=== PATIENT | male | born 1960 | race Caucasian/White ===

== ENCOUNTER → 2016-08-28 | Outpatient (CLI) | payer OTHER ==
[~2016-08-28] MED LIST: ADULT LOW DOSE81 MG PO; ADVAIR 100-501 EACH INH; ADVAIR HFA115 MCG/21 INH; ALBUTEROL2.5 MG/31 INH; ALLOPURINOL 30300 M1 PO; AMITIZA 24 MCG24 MC1 PO; AMOXICILLIN 50500 M1 PO; ASPIRIN EC325 M1 PO; AUGMENTIN 875875 M1 PO; BUMETANIDE 1 MG1 M1 PO; CELEBREX 200 M200 MG PO; CLOTRIMAZOLE-BE15 GM TP; COLACE 100 MG100 MG; COLACE 100 MG100 MG PO; COREG6.25 MG PO; COZAAR100 MG PO; CRESTOR10 MG PO; CRESTOR20 MG PO; DESYREL50 MG PO; DOXYCYCLINE 10100 MG PO; DUONEB 2.5-0.5 M3 ML INH; ESTER-C 1,0001 EACH PO; FISH OIL SOFTG1 EACH PO; FLOVENT DISKU100 MCG; FUROSEMIDE 20 M20 M1 PO; GLIPIZIDE XL5 MG PO; GLUCOPHAGE1000 MG PO; GLUCOTROL5 MG PO; HEPARIN SO5000 UNIT2 IJ; HYDROCODON-ACE1 EAC8 PO; INVANZ 1GM/NS 101 GM IV; INVANZ1 G1 IV; IRON325 PO; JANUVIA100 MG PO; K-DUR 20 MEQ T20 MEQ PO; KETOCONAZOLE60 GM; LASIX 40 MG TAB40 M1 PO; LISINOPRIL2.5 MG PO; LISINOPRIL40 MG PO; LOPRESSOR 50 MG50 M1 PO; LOPRESSOR100 MG PO; LOPRESSOR50 PO; METFORMIN HCL500 MG PO; METHADONE HCL 110 M1 PO; MOBIC15 MG PO; MOBIC7.5 MG; MORPHINE S10 MG/1 M1 IJ; MOVANTIK12.5 MG PO; MUCINEX TA600 MG/TA1 PO; MULTIVITAMINS PO; NEURONTIN 300300 M1 PO; NORCO 10-325 T1 EACH PO; OMEGA-31000 M1 PO; OXYCONTIN20 M1; PERCOCET 5-3251 EACH PO; PLAVIX 75 MG TA75 MG PO; POTASSIUM CHLO20 ME2 PO; PRINIVIL20 MG PO; SENNA PO; SPIRIVA18 MCG INH; SYMBICORT160 MCG/4. INH; TRILEPTAL150 MG PO; TYLENOL325 MG PO; VENTOLIN HFA 1818 GM INH; VICODIN 5-5001 EACH PO; VITAMIN C1000 MG PO; VITAMIN D1000 UNI1 PO; XANAX 0.25 MG0.25 MG PO; ZOCOR 10 MG TAB10 MG PO; [UNRECOGNIZED DRUG - OTHER] PO
== END ==
LOC: HYPER 04-09 06:55
DX: I87.2 Venous insufficiency (chronic) (peripheral) (principal); L97.821 Non-pressure chronic ulcer of other part of left lower leg limited to breakdown of skin; E11.622 Type 2 diabetes mellitus with other skin ulcer; R60.9 Edema, unspecified; E11.51 Type 2 diabetes mellitus with diabetic peripheral angiopathy without gangrene; E78.00 Pure hypercholesterolemia, unspecified; J44.9 Chronic obstructive pulmonary disease, unspecified; I25.10 Atherosclerotic heart disease of native coronary artery without angina pectoris; I10 Essential (primary) hypertension; I25.2 Old myocardial infarction; E66.9 Obesity, unspecified; Z79.84 Long term (current) use of oral hypoglycemic drugs; Z89.519 Acquired absence of unspecified leg below knee; Z95.1 Presence of aortocoronary bypass graft; Z87.891 Personal history of nicotine dependence; Z72.89 Other problems related to lifestyle

== ENCOUNTER → 2016-09-11 | Outpatient (CLI) | payer OTHER | LOC: HYPER 07:05 | DX: I87.2 Venous insufficiency (chronic) (peripheral) (principal); E11.622 Type 2 diabetes mellitus with other skin ulcer; L97.821 Non-pressure chronic ulcer of other part of left lower leg limited to breakdown of skin; R60.9 Edema, unspecified; E11.51 Type 2 diabetes mellitus with diabetic peripheral angiopathy without gangrene; E78.00 Pure hypercholesterolemia, unspecified; L03.116 Cellulitis of left lower limb; J44.9 Chronic obstructive pulmonary disease, unspecified; I25.10 Atherosclerotic heart disease of native coronary artery without angina pectoris; I10 Essential (primary) hypertension; I25.2 Old myocardial infarction; E66.9 Obesity, unspecified; Z79.84 Long term (current) use of oral hypoglycemic drugs; Z87.891 Personal history of nicotine dependence; Z72.89 Other problems related to lifestyle; Z72.0 Tobacco use; Z95.1 Presence of aortocoronary bypass graft; Z89.519 Acquired absence of unspecified leg below knee ==

== ENCOUNTER → 2016-10-07 | Outpatient (CLI) | payer OTHER | LOC: HYPER 07:03 | DX: E11.622 Type 2 diabetes mellitus with other skin ulcer (principal); L97.821 Non-pressure chronic ulcer of other part of left lower leg limited to breakdown of skin; E11.51 Type 2 diabetes mellitus with diabetic peripheral angiopathy without gangrene; E78.00 Pure hypercholesterolemia, unspecified; J44.9 Chronic obstructive pulmonary disease, unspecified; I25.10 Atherosclerotic heart disease of native coronary artery without angina pectoris; I25.2 Old myocardial infarction; Z89.519 Acquired absence of unspecified leg below knee; Z79.84 Long term (current) use of oral hypoglycemic drugs; Z95.1 Presence of aortocoronary bypass graft; Z87.891 Personal history of nicotine dependence; Z72.89 Other problems related to lifestyle ==

== ENCOUNTER → 2016-10-28 | Outpatient (CLI) | payer OTHER | LOC: HYPER 07:02 | DX: I87.2 Venous insufficiency (chronic) (peripheral) (principal); E11.622 Type 2 diabetes mellitus with other skin ulcer; L97.821 Non-pressure chronic ulcer of other part of left lower leg limited to breakdown of skin; L97.321 Non-pressure chronic ulcer of left ankle limited to breakdown of skin; E11.69 Type 2 diabetes mellitus with other specified complication; R60.9 Edema, unspecified; E11.51 Type 2 diabetes mellitus with diabetic peripheral angiopathy without gangrene; E78.00 Pure hypercholesterolemia, unspecified; J44.9 Chronic obstructive pulmonary disease, unspecified; I25.10 Atherosclerotic heart disease of native coronary artery without angina pectoris; I10 Essential (primary) hypertension; I25.2 Old myocardial infarction; E66.9 Obesity, unspecified; Z79.84 Long term (current) use of oral hypoglycemic drugs; Z87.891 Personal history of nicotine dependence; Z72.89 Other problems related to lifestyle; Z89.519 Acquired absence of unspecified leg below knee; Z95.1 Presence of aortocoronary bypass graft ==

== ENCOUNTER → 2016-11-18 | Outpatient (CLI) | payer OTHER | LOC: HYPER 06:54 | DX: I87.2 Venous insufficiency (chronic) (peripheral) (principal); E11.622 Type 2 diabetes mellitus with other skin ulcer; L97.521 Non-pressure chronic ulcer of other part of left foot limited to breakdown of skin; E11.51 Type 2 diabetes mellitus with diabetic peripheral angiopathy without gangrene; E78.00 Pure hypercholesterolemia, unspecified; J44.9 Chronic obstructive pulmonary disease, unspecified; I25.10 Atherosclerotic heart disease of native coronary artery without angina pectoris; I10 Essential (primary) hypertension; I25.2 Old myocardial infarction; Z95.1 Presence of aortocoronary bypass graft; Z89.519 Acquired absence of unspecified leg below knee; Z87.891 Personal history of nicotine dependence; Z79.84 Long term (current) use of oral hypoglycemic drugs; Z72.89 Other problems related to lifestyle ==

== ENCOUNTER → 2016-12-09 | Outpatient (CLI) | payer OTHER | LOC: HYPER 06:56 | DX: I87.2 Venous insufficiency (chronic) (peripheral) (principal); E11.622 Type 2 diabetes mellitus with other skin ulcer; L97.821 Non-pressure chronic ulcer of other part of left lower leg limited to breakdown of skin; R60.9 Edema, unspecified; E11.51 Type 2 diabetes mellitus with diabetic peripheral angiopathy without gangrene; E78.00 Pure hypercholesterolemia, unspecified; J44.9 Chronic obstructive pulmonary disease, unspecified; I25.10 Atherosclerotic heart disease of native coronary artery without angina pectoris; I25.2 Old myocardial infarction; E66.9 Obesity, unspecified; Z79.84 Long term (current) use of oral hypoglycemic drugs; Z87.891 Personal history of nicotine dependence; Z72.89 Other problems related to lifestyle; Z95.1 Presence of aortocoronary bypass graft; Z89.519 Acquired absence of unspecified leg below knee ==

== ENCOUNTER → 2016-12-30 | Outpatient (CLI) | payer OTHER | LOC: HYPER 09:34 | DX: E11.622 Type 2 diabetes mellitus with other skin ulcer (principal); L97.821 Non-pressure chronic ulcer of other part of left lower leg limited to breakdown of skin; I87.2 Venous insufficiency (chronic) (peripheral); E11.51 Type 2 diabetes mellitus with diabetic peripheral angiopathy without gangrene; E78.00 Pure hypercholesterolemia, unspecified; Z79.84 Long term (current) use of oral hypoglycemic drugs; J44.9 Chronic obstructive pulmonary disease, unspecified; I25.10 Atherosclerotic heart disease of native coronary artery without angina pectoris; I25.2 Old myocardial infarction; E66.9 Obesity, unspecified; Z68.37 Body mass index [BMI] 37.0-37.9, adult; Z87.891 Personal history of nicotine dependence; Z95.1 Presence of aortocoronary bypass graft; Z89.519 Acquired absence of unspecified leg below knee ==

== ENCOUNTER → 2017-01-20 | Outpatient (CLI) | payer OTHER | LOC: HYPER 06:41 | DX: E11.622 Type 2 diabetes mellitus with other skin ulcer (principal); L97.821 Non-pressure chronic ulcer of other part of left lower leg limited to breakdown of skin; I87.2 Venous insufficiency (chronic) (peripheral); E11.51 Type 2 diabetes mellitus with diabetic peripheral angiopathy without gangrene; E78.00 Pure hypercholesterolemia, unspecified; Z79.84 Long term (current) use of oral hypoglycemic drugs; J44.9 Chronic obstructive pulmonary disease, unspecified; I25.10 Atherosclerotic heart disease of native coronary artery without angina pectoris; I25.2 Old myocardial infarction; E66.9 Obesity, unspecified; Z68.37 Body mass index [BMI] 37.0-37.9, adult; Z87.891 Personal history of nicotine dependence; Z95.1 Presence of aortocoronary bypass graft ==

== ENCOUNTER → 2017-02-10 | Outpatient (CLI) | payer OTHER | LOC: HYPER 06:59 | DX: E11.622 Type 2 diabetes mellitus with other skin ulcer (principal); L97.821 Non-pressure chronic ulcer of other part of left lower leg limited to breakdown of skin; I87.2 Venous insufficiency (chronic) (peripheral); E11.51 Type 2 diabetes mellitus with diabetic peripheral angiopathy without gangrene; Z79.84 Long term (current) use of oral hypoglycemic drugs; J44.9 Chronic obstructive pulmonary disease, unspecified; I25.10 Atherosclerotic heart disease of native coronary artery without angina pectoris; E78.00 Pure hypercholesterolemia, unspecified; I10 Essential (primary) hypertension; I25.2 Old myocardial infarction; E66.9 Obesity, unspecified; Z68.37 Body mass index [BMI] 37.0-37.9, adult; Z87.891 Personal history of nicotine dependence ==

== ENCOUNTER 2017-04-14 15:45 | Inpatient (IN) | payer OTHER ==
[~2017-04-14] VITALS: Ht 195.6 cm; Wt 150.3 kg
--- NOTE | ~2017-04-14 | HC ---
[facility] [place] [address] CONSULTATION Name: NEFTALI KRAMER Kellee Room #: 243-P [facility] IN M.R.#: [id number] Admission: 04/14/17 Attend Phys: Jenn Frausto Discharge: Date of : 58 Report #: [id number] THIS REPORT FOR: //name// CC: June Frausto DATE OF SERVICE: 04/15/2017 REASON FOR WOUND CARE CONSULTATION: Cellulitis with open wounds of left lower leg, pressure wounds of right below-knee amputation stump. HISTORY OF PRESENT ILLNESS: The patient is a 56-year-old gentleman very well known to the wound care center at [facility] and Dr. Cedric Sidhu for multiple visits over several years for peripheral vascular disease of the lower extremities and chronic venous stasis with ulceration. Asymmetry with compression wraps and compression pumps for edema of his legs and leg wounds. The patient was seen in the Wound Care Center on 04/14, was noted to have considerable drainage from the wounds and cellulitis of the left leg, some foul smelling drainage from the leg and some altered mental status. The patient has been admitted to the hospital and placed on intravenous antibiotics. He has been noted to have altered mental status with hypercapnia and a cough with abnormal x-ray with pneumonia. He is currently on vancomycin and Zosyn. The patient has had some altered mental status with drowsiness, somnolence and some bizarre behavior. Wound care is consulted for wounds of his legs. ALLERGIES: None. OUTPATIENT MEDICATIONS: Include omega 3, fish oil, vitamin D, multiple vitamins, gabapentin, allopurinol, Spiriva, Symbicort, Xanax, aspirin, carvedilol, Bumex, vitamin C, metformin, Crestor and lisinopril. PAST MEDICAL HISTORY: Peripheral vascular disease with right below-knee amputation, history of chronic venous stasis with ulceration and inflammation of the lower legs, left lower extremity cellulitis, history of chronic obstructive pulmonary disease, diabetes mellitus type 2 and coronary artery disease with coronary artery bypass grafting. PAST SURGICAL HISTORY: Coronary artery bypass graft in 2005 and right below-knee amputation. SOCIAL HISTORY: Unobtainable. FAMILY HISTORY: Unobtainable. PHYSICAL EXAMINATION: GENERAL: Shows an obese, middle-aged male with some altered mental [address] [address] CONSULTATION Name: NEFTALI KRAMER Kellee Room #: 243-P [facility] IN .R.#: [id number] Admission: 04/14/17 Attend Phys: Jenn Frausto Discharge: Date of : 58 Report #: [id number] status and somnolence. HEENT: Mucous membranes are moist. LUNGS: Respirations are slightly labored. ABDOMEN: Obese. EXTREMITIES: Examination of the lower extremities shows the right below-knee amputation stump with healed incision line. There are four linear pressure sores associated with the stump on the distal stump and dorsal surface, the largest measuring 2 x 1 cm, which are superficial. These appear to be from the prosthesis. Examination of the left lower extremity shows evidence of chronic venous stasis with pigmentation changes. There are superficial ulcerations of the skin and some weeping drainage. Cultures are taken. They are standard open areas. Dorsalis pedis pulse in the left foot is not palpable. IMPRESSION: 1. Obesity. 2. COPD. 3. Altered mental status with pneumonia. 4. History of coronary artery disease. 5. History of peripheral vascular disease, status post right bony amputation. 6. Complications of right below-knee amputation stump with pressure ulcer from prosthesis. 7. Chronic venous stasis with ulcer and inflammation of the left lower leg with cellulitis. PLAN: Keep the patient's prosthesis off. Wound cultures to be taken of the left leg. Silvadene and Xeroform dressing to the open wounds with Kerlix and Ronald wrap to the left leg. Agree with vancomycin and Zosyn. We will order ultrasound arterial and venous of the left lower extremity to assess for arterial sufficiency and to rule out deep vein thrombosis. We will monitor the cellulitis of his left leg and wound healing. If arterial supply is good to the left leg and his cellulitis resolves, we may be able to increase compression to the leg to stimulate healing of the open wound. Wound care team will follow. By: [id number] [id number] Cameron Jones MD /nt
--- NOTE | ~2017-04-14 | P ---
[facility] [place] [address] PROCEDURE REPORT Name: NIANEFTALI Kellee Room #: 243-P [facility] IN M.R.#: [id number] Admission: 04/14/17 Attend Phys: Jenn Frausto Discharge: Date of : 58 Report #: [id number] THIS REPORT FOR: //name// CC: June Frausto DATE OF SERVICE: 04/15/2017 PROCEDURE: Endotracheal intubation. INDICATION: Worsening respiratory failure. The patient is critically ill. PROCEDURE NOTATION: The patient continued to deteriorate throughout the day from a ventilatory standpoint with worsening acidosis with severe respiratory acidosis decompensating despite noninvasive positive pressure ventilation. The patient was given 20 mg of etomidate. Grade 1 view of the vocal cords were obtained with a Jarred 4 blade under direct laryngoscopy. Some yellow secretions were noted in the vocal cords. Prior to intubation 8.0 tube was then advanced easily to 22 cm at the teeth. Positive Easy Cap color change and bilateral breath sounds were noted post-intubation. This was secured in place. Chest x-ray pending at the time of this dictation, placed on mechanical ventilatory support, initially at tidal volume 500, respiratory rate of 18, PEEP of 5, FiO2 100% with arterial blood gas pending. By: [id number] Johnnie Acharya MD /nt
--- NOTE | ~2017-04-14 | HC ---
[facility] [place] [address] CONSULTATION Name: NIANEFTALI Kellee Room #: 243-P [facility] IN M.R.#: [id number] Admission: 04/14/17 Attend Phys: Jenn Frausto Discharge: Date of : 58 Report #: [id number] THIS REPORT FOR: //name// CC: June Frausto DATE OF SERVICE: 04/15/2017 HISTORY OF PRESENT ILLNESS: This is a 56-year-old male patient who was unable to provide any history. I talked to the nurses looking after this patient. I reviewed the patient's record. No family member is reachable at the moment. Apparently, he had some friends, but they are not reachable at the moment. He was admitted with altered mental status. It is not clear how long it is going on, but he has pretty profound altered mental status. He went to his non destructive testing specialist and they admitted him with what looks like cellulitis, but on workup, it was found that his pCO2 is markedly elevated. At one time, his pCO2 was 72.5 and he was transferred to ICU. Nurses tell me that he can follow simple commands sometime and let them know that he does not like the BiPAP he is on. REVIEW OF SYSTEM: Is available only from the record in this patient. I reviewed the records and it would appear that this patient was falling off to sleep very easily. He had what appeared to be cellulitis. He has a history of peripheral vascular disease and poorly managed diabetes. He does have a significant respiratory problem even in the baseline. I tried to get 14-point review of system and that is all I can get on him and it is mostly from the record. He had a wound with amputation and they suspect that he may be having cellulitis. He is already being followed by multiple physicians including ID, Pulmonary and he is already on antibiotics for his infection. PAST MEDICAL HISTORY: Again, from the record and it looks like this patient does have COPD. FAMILY HISTORY: Negative for early age stroke. SOCIAL HISTORY: Not available in this patient. PHYSICAL EXAMINATION: Pretty limited. He does not respond to commands, but the nurses indicate that he does follow some commands some time. He does not let me do the fundus examination. I do not believe there is much meningeal sign in this patient. He is on BiPAP at the moment, is reasonably well-developed individual who does not have any dysmorphic features of eyes, ears and face. I cannot tell about his hearing. He does appear to have some edema, which appeared to be generalized. Cardiac examination is unremarkable. VITAL SIGNS: Indicate that his pulse is 77 and his blood pressure is 142/82. His temperature is 97.5. [facility] [address] [place] [address] CONSULTATION Name: YOELMAGGYNEFTALI Room #: 243-P [facility] IN M.R.#: [id number] Admission: 04/14/17 Attend Phys: Jenn Frausto Discharge: Date of : 58 Report #: [id number] LABORATORY DATA AND IMAGING: White count was done and is 13.4. So it is somewhat increased now. He did have a CT scan of the head that was reviewed and CT scan of the head did not show any acute changes. I looked at the patient's EEG and that does not show any active seizure activity, but it is slow consistent with encephalopathy. IMPRESSION: This patient's clinical presentation is consistent with encephalopathy. He has a pretty significant increase in CO2 and that may be big contributing factor and he may have encephalopathy secondary to the patient's cellulitis, which also may be causing encephalopathy. I do not think there is any IN STORE DEMONSTRATOR infection, but that cannot be fully excluded in these circumstances. ID is already following this patient up in that regard. RECOMMENDATIONS: 1. From neurological perspective, I think we can just watch. 2. If seizures occur, then I will try to treat it with anticonvulsant. 3. When he is stabilized, we will try to do the MRI in this patient. 4. He will need better compliance because his HDL is very low and he has multiple other abnormalities and looks like compliance is a big problem in this patient. Thank you very much for allowing me to share in the management of this patient and we will follow this patient along with you. By: [id number] Kike Muniz MD /hailey
--- NOTE | ~2017-04-14 | HC ---
[facility] [place] [address] CONSULTATION Name: NEFTALI KRAMER Room #: 243-P ADM IN M.R.#: [id number] Admission: 04/14/17 Attend Phys: Jenn Frausto Discharge: Date of : 58 Report #: [id number] THIS REPORT FOR: //name// CC: June Frausto MD DATE OF SERVICE: 04/15/2017 REFERRING PROVIDER: Jenn Frausto MD REASON FOR CONSULTATION: Hypercapnia. CHIEF COMPLAINT: Altered mental status. HISTORY OF PRESENT ILLNESS: Our group was asked to see the patient in consultation while hospitalized at [facility], known to me from a prior admission about 3 years ago, typically follows with Dr. Granados in our office for underlying COPD. Apparently, a friend have been checking on him recently, has been more and more confused, found on the floor for an undetermined amount of time a day prior to admission, subsequently was able to arouse and get up into a chair, not been feeling well, perhaps with some cough. The patient currently is unable to give any further history. Friend states he found him the next day, poorly responsive, brought to the ER yesterday afternoon, subsequently admitted for pneumonia due to abnormal chest x-ray with left basilar infiltrate. The patient has been with bizarre behavior overnight. Please see nursing notes for details of some of this bizarre behavior. He is typically on methadone 3 times daily, received methadone this morning and became less responsive, received some Narcan 0.4 mg due to diminished level of consciousness and now is having some seizure like behavior and is unresponsive. The patient has had some difficulty with hypercapnia and ongoing hypoxemia, and is now on BiPAP. ALLERGIES: None known. PAST MEDICAL HISTORY: 1. History of diabetes mellitus type 2. 2. Lower extremity cellulitis. 3. Right dalzr-ded-hxtc amputation. 4. History of peripheral vascular disease. 5. Chronic obstructive pulmonary disease, typically on Spiriva and Symbicort. 6. Chronic pain, on methadone. 7. The patient has coronary artery disease, status post coronary artery bypass grafting in 2005. OUTPATIENT MEDICATIONS: Include omega-3 fish oil, vitamin D, multivitamin, [facility] [address] [place] [address] CONSULTATION Name: NEFTALI KRAMER Room #: 243-P [facility] IN .R.#: [id number] Admission: 04/14/17 Attend Phys: Jenn Frausto Discharge: Date of : 58 Report #: [id number] gabapentin, allopurinol, Spiriva, Symbicort, Xanax, aspirin, carvedilol, Bumex, vitamin C, metformin, Crestor, and lisinopril. SOCIAL HISTORY: Unobtainable from the patient due to current status. FAMILY HISTORY: Unobtainable from the patient due to current status. REVIEW OF SYSTEMS: Unavailable due to current status. PHYSICAL EXAMINATION: VITAL SIGNS: Temperature 36.4, pulse 70s, respiratory rate 16, and blood pressure 116/74. GENERAL: This is an obese, middle-aged male, poorly responsive with some intermittent fasciculations of his upper extremities. ENT: BiPAP in place, did not assess oropharynx. NECK: Thick, supple, no lymphadenopathy, no stridor. LUNGS: Diminished with some basilar crackles predominantly on the left. No wheezes noted. CARDIOVASCULAR: Heart was regular. No murmurs appreciated. ABDOMEN: Obese, soft, nontender, no masses. Bowel sounds are active. EXTREMITIES: Lower extremities were wrapped in Ronald bandages, did not remove, his wound care seen earlier today. Right BKA noted. 1+ edema seen. LABS: From today are pending. Arterial blood gas on BiPAP /, FiO2 30% revealed pH 7.21, pCO2 of 63, pO2 of 77, bicarbonate of 25. Lactate was less than 1. IMPRESSION: 1. Altered mental status, unclear if he is having seizure activity at this time, perhaps related to acute reversal of chronic pain medications. Favor further evaluation with neurology, CT of the head, possibly EEG, hold any further reversal of chronic pain meds. 2. Consider a trial of benzodiazepines, we would wait until the ICU to administer in case respiratory status declines. 3. Continue noninvasive positive pressure ventilation low threshold to intubate given altered mental status. 4. Broad-spectrum antimicrobials. 5. Consider sepsis protocol. 6. Await laboratories. 7. Serra catheter placement. 8. Follow arterial blood gases. 9. Additional recommendations to follow based on results of above. [address] [address] CONSULTATION Name: NEFTALI KRAMER Room #: 243-P ADM IN M.R.#: [id number] Admission: 04/14/17 Attend Phys: Jenn Frausto Discharge: Date of : 58 Report #: [id number] Total critical care time to this point 45 minutes, not including any procedures. By: 1344 1520 Johnnie Acharya MD /hailey
--- NOTE | ~2017-04-14 | HC ---
[facility] [place] [address] CONSULTATION Name: EMELINATATYMAGGYNEFTALI Room #: 437-P [facility] IN .R.#: [id number] Admission: 04/14/17 Attend Phys: Jenn Frausto Discharge: 04/18/17 Date of : 58 Report #: [id number] THIS REPORT FOR: //name// CC: June Frausto DATE OF SERVICE: 04/17/2017 HISTORY OF PRESENT ILLNESS: The patient is a 56-year-old white male with history of diabetes mellitus type 2, prior right below knee amputation in 2013 with the prosthesis, who was noted to have problems with the prosthesis rubbing a wound on his lower leg. He was followed by wound care. He was found by a friend essentially passed out in his house. He was admitted, noted to have bilateral cellulitis and developed acute respiratory failure, warranting intubation. He was noted to have an encephalopathy per Neurology with elevated CO2. He also was noted to have bilateral pulmonary infiltrates consistent with community-acquired pneumonia. He was treated for bilateral cellulitis. He was noted to have lower extremity venous stasis changes. He continues in the intensive care unit and we are seeing him in rehabilitation medicine consultation. PAST MEDICAL HISTORY: Includes the below knee amputation in 2013, he has had 4 heart angioplasties, history of coronary artery bypass grafting x 5, he does have a history of peripheral vascular disease. HABITS: Former tobacco smoker, quit greater than a year ago. Alcohol use is noted in the past. MEDICATIONS: Please see the full medication listing. ALLERGIES: No known drug allergies. SOCIAL HISTORY: Lives in an apartment alone, two steps. Utilize his prosthesis. There is a friend that checks in on him. REVIEW OF SYSTEMS: Did not offer any current complaints of chest pain, shortness of breath or abdominal discomfort. PHYSICAL EXAMINATION: GENERAL: A 56-year-old white male seen in the intensive care unit. He is sleepy, but will arouse. He knew he was at [facility]. VITAL SIGNS: Last recorded temperature 98.7, pulse 99, respirations 18, blood pressure 156/76. He is currently on 4 liters nasal prong O2. NEUROLOGIC: Functional range of motion of both upper extremities with strength grade 4- to 4/5. DTRs are trace to 1. Lower extremities: He has the old right below knee amputation and currently has an Ronald wrap with dressing in place. [address] [address] CONSULTATION Name: NIANEFTALI Room #: 437-P [facility] IN .R.#: [id number] Admission: 04/14/17 Attend Phys: Jenn Frausto Discharge: 04/18/17 Date of : 58 Report #: [id number] Left lower extremity is wrapped from distal to proximal. He has definite decreased proprioception of that left large toe. No focal calf swelling. Strength of the lower extremities is probably a grade 3+ to 4-/5. It was somewhat difficult to further assess as he kept falling asleep. ASSESSMENT: A 56-year-old white male with the following problem list: 1. Encephalopathy appears to be due to hypercapnia/metabolic reasons. 2. Acute respiratory failure with chronic obstructive pulmonary disease history, now extubated. 3. Community-acquired pneumonia. 4. Bilateral cellulitis of lower extremities. 5. Chronic wounds. 6. Premorbid right below knee amputation in 2013. 7. Peripheral vascular disease. 8. Diabetes mellitus. 9. Prior history of coronary artery bypass graft. 10. Four heart angioplasties. PLAN: Therapy evaluations are underway. We will be glad to follow along with you regarding his rehab therapy needs. <ELECTRONICALLY SIGNED> By: Tad Gallo MD 04/21/17 1219 1213 1320 Tad Gallo MD /[facility]
--- NOTE | ~2017-04-14 | HC ---
[facility] [place] [address] CONSULTATION Name: NIANEFTALI Room #: 243-P [facility] IN M.R.#: [id number] Admission: 04/14/17 Attend Phys: Jenn Frausto Discharge: Date of : 58 Report #: [id number] THIS REPORT FOR: //name// CC: June Frausto INFECTIOUS DISEASE CONSULTATION REASON FOR CONSULTATION: I was asked to evaluate concerning possible sepsis. HISTORY OF PRESENT ILLNESS: The patient is a 56-year-old with underlying diabetes, peripheral vascular disease who has had a previous right BKA. Noted prior to his admission about a week of not doing well with more lethargy, falling with low grade fever. He presents to the Emergency Room on 04/14/2017 with evidence of basilar pneumonia. He was placed on 2 liters of oxygen per nasal cannula. Overnight, had more change in mental status with some bizarre behavior, now with hypoxia. Temperature up to 99.8 degrees, brought down to the Intensive Care Unit after Narcan was given and he did not improve, now on 40% BiPAP. He remains lethargic and unable to give any details. Report from the nursing staff, no nausea, vomiting or diarrhea. Does not have an indwelling Serra catheter, but does void. He has wounds to his BKA stump and left lower extremity, which wound care has been evaluating. No cough or sputum production. No complaint of chest pain. No complaint of abdominal pain. ALLERGIES: None known. MEDICATIONS: As noted on his MAR including methadone, omega 3 fatty acid, vitamin D, multivitamin, Neurontin, allopurinol, Spiriva, Symbicort, Xanax, aspirin, Coreg, bumetanide, vitamin C, Glucophage, Crestor, Zestril, Colace, placed on vancomycin and Zosyn yesterday. PAST MEDICAL AND SURGICAL HISTORY: Coronary artery bypass grafting, right BKA, previous foot surgery, diabetes, COPD. FAMILY HISTORY: Noncontributory. SOCIAL HISTORY: Past smoker, no significant alcohol intake. REVIEW OF SYSTEMS: As noted above with no additions. PHYSICAL EXAMINATION: VITAL SIGNS: Temperature 99.8, blood pressure was stable, he is on 40% BiPAP. GENERAL: He would arouse, but would not stay awake. Would moan instead of speaking. Obese. EXTREMITIES: Right lower extremity BKA with shallow wounds to the stump. Left lower extremity multiple wounds below the knee with venous stasis dermatitis changes and cellulitis. No evidence of lymphangitis into the thigh. BiPAP mask [address] [address] CONSULTATION Name: NEFTALI KRAMER Room #: 243-P [facility] IN M.R.#: [id number] Admission: 04/14/17 Attend Phys: Jenn Frausto Discharge: Date of : 58 Report #: [id number] NECK: Supple. LUNGS: Crackles in the bases bilaterally. HEART: Regular. ABDOMEN: Obese, firm with no appreciable hepatosplenomegaly or mass. LABORATORY STUDIES: Sodium 141, potassium 5, bicarbonate 30, creatinine 1.4, AST 44, bilirubin 1.4, ALT normal. Hemoglobin 13.2, platelet count 188,000; white count 13.4. Urinalysis unremarkable. Blood cultures are negative thus far. Wound culture is pending. Chest x-ray, bilateral lower lobe infiltrates. IMPRESSION AND PLAN: A 56-year-old diabetic with coronary artery disease, peripheral vascular disease, presents now with failure to thrive, now encephalopathy, respiratory failure, basilar infiltrates consistent with community-acquired pneumonia, left lower extremity venous stasis disease with suspected component of arterial insufficiency from his diabetes with nonhealing wounds and associated cellulitis. Would recommend continuing antibiotic therapy and screening for community-acquired organisms. Add azithromycin to his current regimen to cover both pulmonary and left lower extremity. I doubt we are dealing with intra-abdominal source. He is having vascular studies done today regarding his left lower leg. We will adjust antibiotics pending further studies. <ELECTRONICALLY SIGNED> By: King Valverde MD 04/16/17 1100 1630 2310 King Valverde MD /nt
--- NOTE | ~2017-04-14 | EKG ---
[address] [address] ELECTROCARDIOGRAM REPORT Name: EMELINATATYMAGGYNEFTALI Goodson Room #: 170-10 ADM IN M.R.#: [id number] Admission: 04/14/17 Attend Phys: Jenn Frausto Discharge: Date of : 58 Report #: [id number] THIS REPORT FOR: //name// [facility] ED Test Date: 2017-04-14 Test Time: 16:27:19 Pat Name: NEFTALI KRAMER Department: Room: 170 Gender: M Bridge Carpenter: KASHIF : 1960 Requested By: Alma Rosa Stinson Order Number: [id number] MD: Reed Byers Measurements Intervals [place] Rate: 72 P: 53 OR: 178 QRS: 82 QRSD: 110 T: 183 QT: 373 QTc: 409 Interpretive Statements Sinus rhythm Ventricular bigeminy Low voltage, precordial leads Borderline repolarization abnormality Compared to ECG 11/10/2013 14:31:31 Ventricular premature complex(es) now present Low QRS voltage now present Myocardial infarct finding no longer present Electronically Signed On 04-14-2017 18:26:13 RIG BUILDER by Reed Byers [email or web address] <ELECTRONICALLY SIGNED> By: Reed Byers MD 04/14/17 1826 1627 162 Reed Byers MD /EPI
--- NOTE | ~2017-04-14 | EEG ---
[facility] [place] [address] ELECTROENCEPHALOGRAM Name: NEFTALI KRAMER Room #: 243-P ADM IN M.R.#: [id number] Admission: 04/14/17 Attend Phys: Jenn Perez Discharge: Date of : 58 Report #: [id number] THIS REPORT FOR: //name// CC: June Frausto DATE OF SERVICE: 04/15/2017 This patient is being evaluated for altered mental status. EEG was done by placing the electrodes by standard 10/20 system of electrode placement. Both referential and sequential montages were used for recording. Background activity appeared to be about 7-8 Hz and 30 microvolt. Photic stimulation is unremarkable. EEG is slow throughout the record and disorganized and poorly formed. IMPRESSION: This is an abnormal EEG, which typically happen with encephalopathy. However, the finding is nonspecific and can occur in multiple other etiologies and therefore, clinical correlation is recommended. Thank you very much for this referral. By: 1820 [id number] Kike Muniz MD /nt
[2017-04-14 15:51] VITALS: BP 138/68
[2017-04-14 16:27] LABS: ABG SAMPLE TYPE ARTERIAL; BE(vivo) 5.4 mmol/L (-2 to +3); HCO3 30.4 mmol/L (22.0-26.0); LACTATE 1.46 mmol/L (0.5-2.0); O2(CT) 17.6 mL/dL (15.0-23.0); O2Hb 90.8 % (92.0-98.0); PCO2 45.7 mmHg (35.0-45.0); PO2 66.7 mmHg (80.0-100.0); pH 7.441 (7.360-7.450); sO2 93.8 % (92.0-98.0); tCO2 31.8 mmol/L (24.0-30.0)
[2017-04-14 16:28] LABS: STICK SITE R.RADIAL
[2017-04-14 17:24] LABS: HEMATOCRIT 41.7 % (42.0-52.0); HEMOGLOBIN 13.6 gm/dL (14.0-18.0); MCH 30.8 pg (26.0-34.0); MCHC 32.7 g/dL (28.0-37.0); MCV 94.4 fL (80.0-100.0); PLATELET COUNT 202 thou/uL (150-400); RBC 4.42 mil/uL (4.50-6.00)
[2017-04-14 17:26] LABS: MANUAL DIFF YES
[2017-04-14 17:30] LABS: CALCIUM 9.1 mg/dL (8.5-10.1); CREATININE 1.1 mg/dL (0.7-1.3)
[2017-04-14 17:35] LABS: ALBUMIN 3.3 g/dL (3.4-5.0); TOTAL BILIRUBIN 1.6 mg/dL (<0.1-1.0); TOTAL PROTEIN 7.3 g/dL (6.4-8.2)
[2017-04-14 17:56] LABS: ANISOCYTOSIS 1+; POLYCHROMASIA SLIGHT; TOTAL CELL COUNT 100
[2017-04-14 18:19] LABS: URINE BILIRUBIN NEGATIVE (Negative); URINE BLOOD NEGATIVE (Negative); URINE COLOR YELLOW; URINE GLUCOSE-RANDOM* NEGATIVE (Negative); URINE KETONES NEGATIVE (Negative); URINE NITRITE NEGATIVE (Negative); URINE PROTEIN (DIPSTICK) TRACE (Negative)
[2017-04-14 18:59] VITALS: BP 116/91
[2017-04-14 19:38] VITALS: BP 116/91
[2017-04-14 20:00] VITALS: BP 124/73
[2017-04-15] VITALS (33 sets, daily range): BP systolic 91–142; BP diastolic 50–99
[2017-04-15 09:54] LABS: ABG SAMPLE TYPE ARTERIAL; BE(vivo) -0.6 mmol/L (-2 to +3); HCO3 29.1 mmol/L (22.0-26.0); LACTATE 1.22 mmol/L (0.5-2.0); O2(CT) 18.9 mL/dL (15.0-23.0); O2Hb 94.1 % (92.0-98.0); PO2 104.9 mmHg (80.0-100.0); sO2 96.5 % (92.0-98.0); tCO2 31.3 mmol/L (24.0-30.0)
[2017-04-15 09:55] LABS: PCO2 72.5 mmHg (35.0-45.0); pH 7.221 (7.360-7.450)
[2017-04-15 09:56] LABS: STICK SITE R.RADIAL
[2017-04-15 12:02] LABS: ABG SAMPLE TYPE ARTERIAL; LACTATE 0.97 mmol/L (0.5-2.0); O2(CT) 17.8 mL/dL (15.0-23.0); O2Hb 90.2 % (92.0-98.0); PCO2 63.3 mmHg (35.0-45.0); PO2 77.1 mmHg (80.0-100.0); sO2 92.3 % (92.0-98.0); tCO2 26.9 mmol/L (24.0-30.0)
[2017-04-15 12:03] LABS: pH 7.214 (7.360-7.450)
[2017-04-15 12:05] LABS: STICK SITE R.RADIAL
[2017-04-15 12:06] LABS: Pressure Support 6 cm H20
[2017-04-15 14:58] LABS: HEMATOCRIT 42.4 % (42.0-52.0); HEMOGLOBIN 13.2 gm/dL (14.0-18.0); MCHC 31.3 g/dL (28.0-37.0); MCV 96.1 fL (80.0-100.0); RBC 4.41 mil/uL (4.50-6.00); RDW 19.5 % (10.5-14.5); WBC 13.4 thou/uL (4.0-11.0)
[2017-04-15 15:07] LABS: ALBUMIN 2.9 g/dL (3.4-5.0); CALCIUM 8.6 mg/dL (8.5-10.1); CREATININE 1.4 mg/dL (0.7-1.3); TOTAL BILIRUBIN 1.4 mg/dL (<0.1-1.0); TOTAL PROTEIN 6.4 g/dL (6.4-8.2)
[2017-04-15 20:16] LABS: ABG SAMPLE TYPE ARTERIAL; BE(vivo) -3.8 mmol/L (-2 to +3); HCO3 26.6 mmol/L (22.0-26.0); LACTATE 1.22 mmol/L (0.5-2.0); O2(CT) 18.6 mL/dL (15.0-23.0); O2Hb 92.1 % (92.0-98.0); PO2 86.3 mmHg (80.0-100.0); sO2 93.6 % (92.0-98.0); tCO2 28.8 mmol/L (24.0-30.0)
[2017-04-15 20:17] LABS: PCO2 74.3 mmHg (35.0-45.0); STICK SITE L.BRACHIAL; pH 7.171 (7.360-7.450)
[2017-04-15 23:09] LABS: ABG SAMPLE TYPE ARTERIAL; BE(vivo) -6.5 mmol/L (-2 to +3); HCO3 21.6 mmol/L (22.0-26.0); LACTATE 1.22 mmol/L (0.5-2.0); O2(CT) 19.3 mL/dL (15.0-23.0); O2Hb 97.4 % (92.0-98.0); PCO2 53.5 mmHg (35.0-45.0); PO2 291.7 mmHg (80.0-100.0); sO2 99.6 % (92.0-98.0); tCO2 23.2 mmol/L (24.0-30.0)
[2017-04-15 23:10] LABS: STICK SITE R.RADIAL; TIDAL VOLUME 500 ml; pH 7.224 (7.360-7.450)
[2017-04-16] VITALS (17 sets, daily range): BP systolic 117–152; BP diastolic 60–94
[2017-04-16 05:16] LABS: ABG SAMPLE TYPE ARTERIAL; BE(vivo) 0.1 mmol/L (-2 to +3); HCO3 26.6 mmol/L (22.0-26.0); LACTATE 1.74 mmol/L (0.5-2.0); O2(CT) 18.3 mL/dL (15.0-23.0); O2Hb 96.8 % (92.0-98.0); PCO2 51.2 mmHg (35.0-45.0); PO2 122.7 mmHg (80.0-100.0); STICK SITE R.RADIAL; TIDAL VOLUME 500 ml; pH 7.334 (7.360-7.450); sO2 98.2 % (92.0-98.0); tCO2 28.2 mmol/L (24.0-30.0)
[2017-04-16 05:46] LABS: CALCIUM 8.6 mg/dL (8.5-10.1); CREATININE 1.3 mg/dL (0.7-1.3); MAGNESIUM 2.3 mg/dL (1.8-2.4)
[2017-04-16 17:15] LABS: ABG SAMPLE TYPE ARTERIAL; BE(vivo) 0.7 mmol/L (-2 to +3); HCO3 26.4 mmol/L (22.0-26.0); LACTATE 2.38 mmol/L (0.5-2.0); O2(CT) 18.6 mL/dL (15.0-23.0); O2Hb 91.4 % (92.0-98.0); PCO2 45.9 mmHg (35.0-45.0); PO2 68.9 mmHg (80.0-100.0); pH 7.377 (7.360-7.450); sO2 93.4 % (92.0-98.0); tCO2 27.8 mmol/L (24.0-30.0)
[2017-04-16 17:16] LABS: STICK SITE R.RADIAL
[2017-04-16 17:17] LABS: ABG COMMENT POST SELF EXTUBATION
[2017-04-17] VITALS (12 sets, daily range): BP systolic 117–160; BP diastolic 55–96
[2017-04-17 05:29] LABS: ABG SAMPLE TYPE ARTERIAL; BE(vivo) 1.8 mmol/L (-2 to +3); LACTATE 1.59 mmol/L (0.5-2.0); O2(CT) 17.2 mL/dL (15.0-23.0); O2Hb 91.9 % (92.0-98.0); PCO2 50.3 mmHg (35.0-45.0); PO2 71.7 mmHg (80.0-100.0); pH 7.363 (7.360-7.450); sO2 93.7 % (92.0-98.0); tCO2 29.5 mmol/L (24.0-30.0)
[2017-04-17 05:30] LABS: STICK SITE R.RADIAL
[2017-04-17 13:45] LABS: TSH 0.076 uIU/mL (0.358-3.740)
[2017-04-18 04:11] VITALS: BP 150/78
[2017-04-18 08:00] VITALS: BP 154/74
[2017-04-18] MEDS ORDERED: UNASYN 3 GM VIAL3 G1 IV (11:19)
[2017-04-18] MEDS ORDERED: ALTACE5 MG PO (11:20)
[2017-04-18] MEDS ORDERED: ENOXAPARIN30 MG/0.1 SUBQ (11:20)
[2017-04-18] MEDS ORDERED: ACETAMINOPHEN325 M1 PO (11:21)
[2017-04-18] MEDS ORDERED: SOLU-MEDRO125 MG/24 IV PUSH (11:21)
[2017-04-18 23:09] LABS: INFLUENZA B Negative (Negative); METAPNEUMOVIRUS Negative (Negative)
== END 2017-04-18 17:20 | DRG 208 ==
LOC: ER 15:45 → EROBS 17:12 → 4E 17:12 → ICU 04-15 14:09 → 4S 04-17 23:08
PROVIDERS: Hospitalist; Internal Medicine Pulmonary Disease; Nurse Practitioner Acute Care; Physician Assistant; Psychiatry & Neurology Neuromuscular Medicine; Specialist
PROC: 0BH17EZ Insertion of Endotracheal Airway into Trachea, Via Natural or Artificial Opening (ICD-10-PCS; principal; 2017-04-15)
PROC: 5A1935Z Respiratory Ventilation, Less than 24 Consecutive Hours (ICD-10-PCS; principal; 2017-04-15)
PROC: 02HV33Z Insertion of Infusion Device into Superior Vena Cava, Percutaneous Approach (ICD-10-PCS; 2017-04-15)
PROC: 5A09357 Assistance with Respiratory Ventilation, Less than 24 Consecutive Hours, Continuous Positive Airway Pressure (ICD-10-PCS; 2017-04-18)
DX: J69.0 Pneumonitis due to inhalation of food and vomit (principal); J96.01 Acute respiratory failure with hypoxia; G93.40 Encephalopathy, unspecified; J96.02 Acute respiratory failure with hypercapnia; J44.1 Chronic obstructive pulmonary disease with (acute) exacerbation; L03.116 Cellulitis of left lower limb; L03.115 Cellulitis of right lower limb; E44.0 Moderate protein-calorie malnutrition; L97.919 Non-pressure chronic ulcer of unspecified part of right lower leg with unspecified severity; E11.51 Type 2 diabetes mellitus with diabetic peripheral angiopathy without gangrene; G89.29 Other chronic pain; I25.10 Atherosclerotic heart disease of native coronary artery without angina pectoris; G47.33 Obstructive sleep apnea (adult) (pediatric); Z60.2 Problems related to living alone; I87.8 Other specified disorders of veins; E66.9 Obesity, unspecified; Z68.39 Body mass index [BMI] 39.0-39.9, adult; Z95.1 Presence of aortocoronary bypass graft; Z87.891 Personal history of nicotine dependence; Z89.511 Acquired absence of right leg below knee; Z79.899 Other long term (current) drug therapy; Z98.61 Coronary angioplasty status; Z99.81 Dependence on supplemental oxygen
CPT/HCPCS: 10078; 10100; 10183; 27000